=== PATIENT | female | born 1985 | race Hispanic/Latino ===

== ENCOUNTER 2018-02-10 05:28 | Emergency (ER) | payer SELFPAY ==
[2018-02-10] MEDS ORDERED: IBUPROFEN 400 MG TAB ONE (06:19)
[2018-02-10 06:48] LABS: Urine Blood 2+ (NEG); Urine Glucose NEGATIVE (NEG); Urine Protein 2+ (NEG)
--- NOTE | 2018-02-10 07:18 | EDPHYS ---
Physician Documentation [facility] Name: Kathy Langley Age: 32 yrs Sex: Female : 1985 Arrival Date: 02/10/2018 Time: 05:32 Bed 7 Private MD: ED Physician Qasim Huerta HPI: 02/10 06:14 This 32 yrs old Female presents to ER via Ambulatory with complaints of Fever. pm1 06:14 The patient reports fever, that was measured at 103 degrees Fahrenheit. Onset: The pm1 symptoms/episode began/occurred 4 day(s) ago. Modifying factors: there are no obvious modifying factors. Associated signs and symptoms: Pertinent positives: chills, cough, Vomit x 1, Pertinent negatives: earache, headache, runny nose, sinus congestion, sinus drainage, skin rash, sore throat. Severity of symptoms: in the emergency department the symptoms have improved. The patient has not experienced similar symptoms in the past. The patient has not recently seen a physician, and does not have an established primary care provider. 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 - Social history:: Smoking status: Patient/guardian denies using tobacco, Patient/guardian denies using alcohol, street drugs. ROS: 06:14 Eyes: Negative for injury, pain, redness, and discharge, ENT: Negative for injury, pm1 pain, and discharge, Neck: Negative for injury, pain, and swelling, Cardiovascular: Negative for chest pain, palpitations, and edema. 06:14 Back: Negative for injury and pain. 06:14 : Negative for injury, bleeding, discharge, and swelling, MS/Extremity: Negative for injury and deformity, Skin: Negative for injury, rash, and discoloration, Neuro: Negative for headache, weakness, numbness, tingling, and seizure. 06:14 Constitutional: Positive for body aches, chills, fever, Negative for poor PO intake. 06:14 Respiratory: Positive for cough, with no reported sputum, SOB with fever. 06:14 Abdomen/GI: Positive for Vomit x 1 this AM, Negative for abdominal pain, diarrhea. Exam: 06:14 Constitutional: This is a well developed, well nourished patient who is awake, alert, pm1 and in no acute distress. Head/Face: Normocephalic, atraumatic. Eyes: Pupils equal round and reactive to light, extra-ocular motions intact. Lids and lashes normal. Conjunctiva and sclera are non-icteric and not injected. Cornea within normal limits. Periorbital areas with no swelling, redness, or edema. ENT: Nares patent. No nasal discharge, no septal abnormalities noted. Tympanic membranes are normal and external auditory canals are clear. Oropharynx with no redness, swelling, or masses, exudates, or evidence of obstruction, uvula midline. Mucous membranes moist. Neck: Trachea midline, no thyromegaly or masses palpated, and no cervical lymphadenopathy. Supple, full range of motion without nuchal rigidity, or vertebral point tenderness. No Meningismus. Chest/axilla: Normal chest wall appearance and motion. Nontender with no deformity. No lesions are appreciated. 06:14 Respiratory: Lungs have equal breath sounds bilaterally, clear to auscultation and percussion. No rales, rhonchi or wheezes noted. No increased work of breathing, no retractions or nasal flaring. Abdomen/GI: Soft, non-tender, with normal bowel sounds. No distension or tympany. No guarding or rebound. No evidence of tenderness throughout. Back: No spinal tenderness. No costovertebral tenderness. Full range of motion. Skin: Warm, dry with normal turgor. Normal color with no rashes, no lesions, and no evidence of cellulitis. MS/ Extremity: Pulses equal, no cyanosis. Neurovascular intact. Full, normal range of motion. 06:14 Cardiovascular: Rate: normal, Rhythm: regular, Pulses: no pulse deficits are appreciated, Heart sounds: normal, Edema: is not appreciated. 06:14 Neuro: Orientation: is normal, Motor: moves all fours, Gait: is steady, at a normal pace, without difficulty. Vital Signs: 05:52 BP 116 / 73; Pulse 69; Resp 20 S; Temp 100.6(O); Pulse Ox 97% on R/A; Weight 99.79 kg bb (R); Height 5 ft. 7 in. (170.18 cm) (R); Pain 4/10; 07:43 Temp 98.4(O); sv 05:52 Body Mass Index 34.46 (99.79 kg, 170.18 cm) bb MDM: 06:12 Patient medically screened. pm1 06:12 Data reviewed: vital signs. Data interpreted: Pulse oximetry: on room air is 97 %. pm1 Interpretation: normal. Refusal of service: The patient/guardian displays adequate decision making capability and despite a detailed discussion of alternatives, benefits, risks, and consequences refuses: all X-rays. 06:40 Counseling: I had a detailed discussion with the patient and/or guardian regarding: the pm1 historical points, exam findings, and any diagnostic results supporting the discharge/admit diagnosis, lab results. 07:16 Counseling: I had a detailed discussion with the patient and/or guardian regarding: the pm1 need for outpatient follow up, to return to the emergency department if symptoms worsen or persist or if there are any questions or concerns that arise at home. 02/10 06:12 Order name: Flu; Complete Time: 06:40 pm1 02/10 06:33 Order name: Urine Dipstick--Ancillary (enter results); Complete Time: 06:53 rg2 02/10 06:12 Order name: Urine Dipstick-Ancillary (obtain specimen); Complete Time: 06:31 pm1 02/10 06:12 Order name: Urine Test (obtain specimen); Complete Time: 06:31 pm1 02/10 06:33 Order name: Urine --Ancillary (enter results); Complete Time: 06:53 rg2 Administered Medications: 06:25 Drug: Ibuprofen 800 mg Route: PO; jd3 07:43 Follow up: Temp 98.4 Oral sv Disposition: 02/10/18 07:17 Discharged to Home. Impression: Acute upper respiratory infection, unspecified. - Condition is Stable. - Discharge Instructions: Influenza, Adult, Upper Respiratory Infection, Adult, Viral Infections. - Medication Reconciliation Form, Thank You Letter, Antibiotic Education form. - Follow up: Emergency Department; When: As needed; Reason: Worsening of condition. Follow up: Private Physician; When: 2 - 3 days; Reason: Recheck today's complaints, Continuance of care, Re-evaluation by your physician. - Problem is new. - Symptoms have improved. Addendum: 02/15/2018 06:24 Co-signature as Attending Physician, Qasim Huerta MD. g reggie Signatures: Dispatcher [employer] Miri Gonzalez RN RN Suzette Shrestha RN RN bb Nicola Mayberry, GERMINATION WORKER GERMINATION WORKER pm1 Qasim Huerta MD MD gs Davies, Jonathon, RN RN jd3
--- NOTE | 2018-02-10 07:18 | ER ---
Nurse's Notes [facility] Name: Kathy Langley Age: 32 yrs Sex: Female : 1985 Arrival Date: 02/10/2018 Time: 05:32 Bed 7 Private MD: Diagnosis: Acute upper respiratory infection, unspecified Presentation: 02/10 05:50 Presenting complaint: Patient states: she has been running fever since Thursday up to bb 103 with SOB had chills and body aches, vomited x 1 this morning, last took Tylenol 650 mg at 0400. Transition of care: patient was not received from another setting of care. Onset of symptoms was February 07, 2018. Care prior to arrival: None. 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 - Social history:: Smoking status: Patient/guardian denies using tobacco, Patient/guardian denies using alcohol, street drugs. Screenin:53 Abuse screen: Denies threats or abuse. Nutritional screening: No deficits noted. jd3 Tuberculosis screening: No symptoms or risk factors identified. Fall Risk None identified. Assessment: 05:51 General: Appears in no apparent distress. uncomfortable, Behavior is calm, cooperative, jd3 appropriate for age. Pain: Denies pain. Neuro: Level of Consciousness is awake, alert, obeys commands, Oriented to person, place, time, situation. Cardiovascular: Heart tones S1 S2 present Capillary refill < 3 seconds Patient's skin is warm and dry. Respiratory: Airway is patent Respiratory effort is even, unlabored, Respiratory pattern is regular, symmetrical, Breath sounds are clear bilaterally. GI: Abdomen is round Bowel sounds present X 4 quads. Abd is soft and non tender X 4 quads. : No signs and/or symptoms were reported regarding the genitourinary system. EENT: No signs and/or symptoms were reported regarding the EENT system. Derm: Skin is intact, Skin is dry, Skin is normal, Skin temperature is warm. Musculoskeletal: Circulation, motion, and sensation intact. Range of motion: intact in all extremities. 06:20 Reassessment: pt stated "I don't want to get the chest x-ray if you can let the doctor jkevin know". 07:43 Reassessment: Patient appears in no apparent distress at this time. Patient and/or sv family updated on plan of care and expected duration. Pain level reassessed. Patient is alert, oriented x 3, equal unlabored respirations, skin warm/dry/pink. Vital Signs: 05:52 BP 116 / 73; Pulse 69; Resp 20 S; Temp 100.6(O); Pulse Ox 97% on R/A; Weight 99.79 kg bb (R); Height 5 ft. 7 in. (170.18 cm) (R); Pain 4/10; 07:43 Temp 98.4(O); sv 05:52 Body Mass Index 34.46 (99.79 kg, 170.18 cm) bb ED Course: 05:32 Patient arrived in ED. al2 05:50 Jose Angel Mccollum RN is Primary Nurse. jd3 05:51 Triage completed. bb 05:52 Arm band placed on Patient placed in an exam room, on a stretcher, on pulse oximetry. bb Family accompanied patient. 05:53 Patient has correct armband on for positive identification. Bed in low position. Call jd3 light in reach. Side rails up X 1. Adult w/ patient. 06:01 Nicola Mayberry NP is PHCP. pm1 06:01 Qasim Huerta MD is Attending Physician. pm1 06:18 Flu Sent. jd3 07:43 No provider procedures requiring assistance completed. Patient did not have IV access sv during this emergency room visit. Administered Medications: 06:25 Drug: Ibuprofen 800 mg Route: PO; jd3 07:43 Follow up: Temp 98.4 Oral sv Outcome: 07:17 Discharge ordered by . pm1 07:43 Discharged to home ambulatory, with family. sv 07:43 Condition: stable 07:43 Discharge instructions given to patient, Instructed on discharge instructions, follow up and referral plans. Demonstrated understanding of instructions, follow-up care. 07:44 Patient left the ED. sv Signatures: Miri Levin RN RN sv Ballard, Brenda, RN RN bb Nicola Mayberry NP PIG MACHINE CRANE OPERATOR pm1 Jose Angel Mccollum, RN RN jd3 Cristin, [place]
== END 2018-02-10 07:44 | disposition home or self-care (01) ==
LOC: ER 05:28
DX: J06.9 Acute upper respiratory infection, unspecified (principal)
CPT/HCPCS: 81003; 81025; 87804; 99283